=== PATIENT | male | born 1985 | race Caucasian/White ===

== ENCOUNTER 2021-09-28 22:17 | Emergency (ER) | payer MEDICAID, SELFPAY ==
[2021-09-28 22:48] VITALS: BP 104/62; PULSE 67; RESP 16; TEMP 36.9; O2SAT 96; BMI 28.2
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
== END 2021-09-28 23:50 | disposition home or self-care (01) ==
LOC: ED 23:40
PROVIDERS: Emergency Provider Internal Medicine
DX: J02.9 Acute pharyngitis, unspecified (principal); T59 Toxic effect of other gases, fumes and vapors
CPT/HCPCS: 99282; 99283